=== PATIENT | female | born 1975 | race Caucasian/White ===

== ENCOUNTER → 2017-06-18 07:51 | Outpatient (CLI) | payer MEDICAID, SELFPAY ==
--- NOTE | 2017-06-18 07:54 | US_ITS ---
US abdomen limited: HISTORY: Right upper quadrant pain with nausea and vomiting and bloating ITS.REASON: N V after meals ORDERING PHYSICIAN: Vamshi Swann MD PATIENT AGE: 42 years COMPARISON: FINDINGS: PANCREAS: Unremarkable. No obvious mass or abnormal fluid collection. No ductal dilatation LIVER: No focal liver lesions demonstrated. Homogeneous echogenicity. No intrahepatic biliary ductal dilatation evident RIGHT KIDNEY: Unremarkable. Normal size and echogenicity. No hydronephrosis GALLBLADDER: No gallstones, gallbladder wall thickening, pericholecystic fluid, or biliary dilatation. IMPRESSION: Negative gallbladder/right upper quadrant ultrasound
== END ==
PROVIDERS: Family Provider Emergency Medicine; PCP Emergency Medicine; Visit Provider Emergency Medicine
DX: R10.11 Right upper quadrant pain (principal); R11.2 Nausea with vomiting, unspecified
CPT/HCPCS: 76705

== ENCOUNTER → 2017-07-22 09:58 | Outpatient (CLI) | payer MEDICAID, SELFPAY ==
[2017-07-22 07:57] LABS: Microscopic, Urine URINE MICROSCOPIC (MICROSCOPIC)
[2017-07-22 08:19] LABS: Basophils # 0.1 K/mm3 (0-0.2); Basophils % 0.7 % (0.1-2.0); Eosinophils # 0.2 K/mm3 (0.0-0.4); Eosinophils % 2.7 % (0.1-12.0); Hematocrit 41.4 % (37.0-47.0); Lymphocytes # 3.6 K/mm3 (0.7-4.5); Lymphocytes % 53.8 K/mm3 (10-50); Mean Corpuscular HGB Conc 31.4 g/dL (31.8-35.4); Mean Corpuscular Hemoglobin 29.8 pg (27.0-31.2); Mean Platelet Volume 9.5 fl (7.4-10.4); Monocytes # 0.3 K/mm3 (0.1-1.0); Monocytes % 4.3 % (1.7-9.3); Neutrophils # 2.6 K/mm3 (1.8-7.8); Neutrophils % 38.5 % (37.0-80.0); Platelet Count 209 K/mm3 (142-424); Red Blood Count 4.35 M/mm3 (4.20-5.40); Red Cell Distribution Width 13.3 % (11.5-17.5); White Blood Count 6.7 K/mm3 (4.8-10.8)
[2017-07-22 08:20] LABS: Appearance,Urine SL CLOUDY (Clear); Bilirubin,Urine Negative (Negative); Blood, Urine Negative (Negative); Color,Urine YELLOW (Yellow); Glucose,Urine (UA) Negative (Negative); Ketones,Urine Negative (Negative); Leukocyte Esterase,Urine Negative (Negative); Nitrate,Urine POSITIVE (Negative); Protein,Urine Negative (Negative); Urobilinogen,Urine 0.2 EU/dl (0.2)
[2017-07-22 08:34] LABS: Bacteria,Urine 2+ /lpf
[2017-07-22 08:35] LABS: Fine Granular Casts,Urine Occasional #/lpf (0)
[2017-07-22 08:36] LABS: MANUAL DIFFERENTIAL MANUAL DIFFERENTIAL (MANUAL DIFF)
[2017-07-22 09:15] LABS: Alanine Aminotransferase 17 U/L (12-78); Albumin/Globulin Ratio 1.3 (1.1-1.8); Alkaline Phosphatase 103 U/L (46-116); Anion Gap 13.1 mEq/L (5-15); Aspartate Amino Transferase 18 U/L (15-37); Bilirubin,Total 0.3 mg/dL (0.2-1.0); Blood Urea Nitrogen 7 mg/dL (7-18); Calcium 9.6 mg/dL (8.5-10.1); Carbon Dioxide 31 mmol/L (21.0-32.0); Chloride 104 mmol/L (98-107); Creatinine,Serum 0.73 mg/dL (0.55-1.02); Estimated Glomerular Filt Rate 87 ml/min (>60); GFR (African American) 105 ML/MIN (>60); Globulin 3.2 gm/dl (1.3-3.2); Glucose 81 mg/dL (74-106); Potassium 4.1 mmoL/L (3.5-5.1); Sodium 144 mmol/L (136-145); Total Protein,Serum 7.2 gm/dL (6.4-8.2)
[2017-07-22 09:49] LABS: Lymphocytes % 53 % (10-50); Monocytes % 5 % (2-9); Neutrophils % 40 % (42-76); Total Cells Counted 100
[2017-07-22 09:50] LABS: Platelet Estimate Normal
== END ==
PROVIDERS: Visit Provider Surgery
DX: Z01.818 Encounter for other preprocedural examination (principal); R10.12 Left upper quadrant pain; R11.2 Nausea with vomiting, unspecified
CPT/HCPCS: 36415; 80053; 81001; 85007; 85025; 87086; 87088; 87186

== ENCOUNTER 2020-04-29 22:38 | Emergency (ER) | payer MEDICAID, SELFPAY ==
[2020-04-29 22:39] VITALS: BP 108/73; PULSE 101; RESP 4; TEMP -17.7; TEMP 0; O2SAT 85
[2020-04-29 23:01] VITALS: BP 108/73; PULSE 101; RESP 12; TEMP -17.7; TEMP 0; O2SAT 100
--- NOTE | 2020-04-29 23:01 | HMH.EDOD ---
ED Disposition Clinical Impression: Poisoning by opiate or related narcotic Disposition: Left Against Medical Advice Condition on Discharge: Serious Instructions: DI for Drug Overdose in Adults Additional Instructions: call pcp for follow up Referrals: PCP,Ying [Primary Care Provider] - - Critical Care Critical Care Time: No Attestation: On 04/29/20, the high probability of a clinically significant, sudden or life threatening deterioration of the following system(s) required my full and direct attention, intervention and personal management. The time I documented below is in addition to time spent performing reported procedures but includes the following listed in this critical care notation. Medical Decision Making - Medical Records Medical records reviewed: Yes: I reviewed the patient's medical records. - Vel Inquiry Pt receiving controlled substance: No Vital Signs: 04/29/20 22:39 Temperature 0 F L Temperature Source Oral Pulse Rate [Right] 101 H Respiratory Rate 4 L Blood Pressure [Right Arm] 108/73 L Blood Pressure Mean [Right Arm] 84 02 Sat by Pulse Oximetry 85 L Oxygen Delivery Method Room Air Orders (Tests/Meds): ED MEDICATIONS Discontinued Medications Generic Name Dose Route Start Last Admin Trade Name Freq PRN Reason Stop Dose Admin Naloxone HCl 2 mg 04/29/20 22:59 Naloxone 2mg/2ml Syringe IV 04/29/20 23:00 ONCE ONE Naloxone HCl 1 mg 04/29/20 22:59 Naloxone 2mg/2ml Syringe IV 04/29/20 23:00 ONCE ONE Medical Decision Narrative: opiate poisioning with acute resp arrest reversed with narcan x 2 Overdose HPI - General Chief Complaint: Overdose Stated Complaint: unresponsive Time Seen by Provider: 04/29/20 22:40 Mode of Arrival: Wheelchair Source of Information: Patient, Significant Other, Medical Record Limitations: Altered Mental Status Description of Symptoms (Recalled from ER Triage Doc. by RN): was called to help get a pt out of car. upon arrival found pt unresponsive cyantioc , shallow breathing. adminster narcan pt left ama - History of Present Illness HPI Narrative: pt with dec loc and removed from car with dec rr and possible opiate misuse complaint: accidental overdose Onset (ago): hour(s) Timing confirmed by: family member Context: Accidental Overdose: wanted to get high Treatments Prior to Arrival: none - Related Data Previous Rx's Medication Instructions Recorded oxycodone-acetaminophen 7.5 mg-325 1 tab PO QID #40 tab 10/29/17 mg tablet Allergies Allergy/AdvReac Type Severity Reaction Status Date / Time From Penicillin G Sodium Allergy Unknown Uncoded 10/29/17 11:35 Penicillin Allergy Unknown Uncoded 10/29/17 11:35 [facility] History - Hepatitis A Screen Drug use history?: Yes High risk sexual behaviors?: No History of sexually transmitted infection?: No Currently employed?: No Childcare worker?: No Do you have indoor plumbing?: Yes Do you have electricity?: Yes Attestation statement:: This patient has been screened for Hepatitis A risk factors. I have reviewed the patient's past medical history: Yes Medical History: Reports:: Gastroesophageal Reflux Disease(GERD) Denies:: Chronic Obstructive Pulmonary Disease (COPD), Diabetes Mellitus Type 1, Diabetes Mellitus Type 2, Internal Pacemaker, Lung Disease, Seizures Other Medical History: Reports: Other. Denies: Blood Transfusion Reaction Comment: spinal fracture C4,5,6,7 Laterality Cases: Bilateral: Carpal Tunnel Release Other Surgeries: Yes: Hysterectomy-Partial, Other. No: Pacemaker Amputation: No Fractures: Yes - Social History Smoking Status: Unknown if ever smoked Tobacco Type: cigarettes Alcohol Intake: never Substance Use Type: denies use Last Used Substance: unknown Occupational Status: unemployed Family Hx:: Cancer ROS Obtained: Yes unobtainable due to mental status Physical Exam - General General appearance: lethargic - He
== END 2020-04-29 23:30 | disposition left against medical advice (07) ==
PROVIDERS: Emergency Provider Emergency Medicine
DX: R55 Syncope and collapse (principal); T40.2X1A Poisoning by other opioids, accidental (unintentional), initial encounter
CPT/HCPCS: 96375; 99282; J2310

== ENCOUNTER 2020-10-27 13:15 | Emergency (ER) | payer MEDICAID, SELFPAY ==
[2020-10-27 13:26] VITALS: BP 136/88; PULSE 75; RESP 20; TEMP 37.1; O2SAT 98; BMI 22.3
--- NOTE | 2020-10-27 13:40 | HMH.EDUTC ---
[facility] Clinical Impression: Abscess, dental Disposition: Home, Self-Care Condition on Discharge: Good Instructions: Tooth Abscess Additional Instructions: Maximo Garcia DMD [phone] Referrals: Vamshi Swann MD [Primary Care Provider] - Time of Disposition: 13:56 Medical Decision Making - Vel Inquiry Pt receiving controlled substance: No Vital Signs: 10/27/20 13:26 10/27/20 14:19 Temperature 98.8 F 98 F Temperature Source Oral Pulse Rate 75 Pulse Rate [Left] 75 Respiratory Rate 20 16 Blood Pressure 136/88 Blood Pressure [Right Arm] 136/88 Blood Pressure Mean [Right Arm] 104 02 Sat by Pulse Oximetry 98 Orders (Tests/Meds): ED MEDICATIONS Discontinued Medications Generic Name Dose Route Start Last Admin Trade Name Freq PRN Reason Stop Dose Admin Benzocaine/Butamben/Tetracaine HCl 30 gm 10/27/20 13:54 10/27/20 14:06 Tetracaine/Benzocaine/Butamben 56 Gm [place] TP 11/26/20 13:53 30 gm NEEDED PRN Administration Moderate Pain Lidocaine HCl 5 ml 10/27/20 14:05 10/27/20 14:06 Lidocaine 1% 5ml Pf Vial IJ 10/27/20 14:06 Not Given ONCE ONE Lidocaine HCl 15 ml 10/27/20 14:07 10/27/20 14:08 Lidocaine 2% Viscous Magdalena 15ml Udc PO 10/27/20 14:08 15 ml ONCE ONE Administration [facility] [place]PI - General Stated complaint: right side abcess tooth Time Seen by Provider: 10/27/20 13:40 Mode of Arrival: Ambulatory Source of Information: Patient Limitations: No Limitations Description of Symptoms (Recalled from Triage Doc. by RN): pt c/o of an abcessed tooth. outter R jaw is swollen. pt had a [facility] appointment and the dentist told her to come in here. HEENT Symptoms (Recalled from RN notes): Yes (R jaw pain) Resp Symptoms (Recalled from RN notes): No Skin Symptoms (Recalled from RN notes): No MS Symptoms (Recalled from RN notes): No Functional Status (Recalled from RN notes): na - History of Present Illness Provider Complaint: Pain and swelling of right lower jaw. Started early this am. Has a broken tooth there, but it has been broken for 2 years. No fever. Onset (ago): year(s) (2) Location: mouth Radiation: neck Severity: severe Quality: stabbing, aching Consistency: constant Relieving factors: none Exacerbating factors: none Associated symptoms: denies other symptoms Treatments prior to arrival: none - Related Data Previous Rx's Medication Instructions Recorded oxycodone-acetaminophen 7.5 mg-325 1 tab PO QID #40 tab 10/29/17 mg tablet clindamycin HCl 300 mg capsule 300 mg PO BID 10 Days #20 cap 10/27/20 ibuprofen 800 mg tablet 800 mg PO Q8HP PRN 10 Days #30 tab 10/27/20 Allergies Allergy/AdvReac Type Severity Reaction Status Date / Time From Penicillin G Sodium Allergy Unknown Uncoded 10/29/17 11:35 Penicillin Allergy Unknown Uncoded 10/29/17 11:35 - Worker's Comp Is this a Worker's Comp case?: No [facility] History - Hepatitis A Screen Drug use history?: No High risk sexual behaviors?: No History of sexually transmitted infection?: No Currently employed?: No Childcare worker?: No Do you have indoor plumbing?: Yes Do you have electricity?: Yes Attestation statement:: This patient has been screened for Hepatitis A risk factors. I have reviewed the patient's past medical history: Yes Medical History: Reports:: Gastroesophageal Reflux Disease(GERD) Denies:: Chronic Obstructive Pulmonary Disease (COPD), Diabetes Mellitus Type 1, Diabetes Mellitus Type 2, Internal Pacemaker, Lung Disease, Seizures Other Medical History: Reports: Other. Denies: Blood Transfusion Reaction Comment: spinal fracture C4,5,6,7 Laterality Cases: Bilateral: Carpal Tunnel Release Other Surgeries: Yes: Hysterectomy-Partial, Other. No: Pacemaker Amputation: No Fractures: Yes - Social History Smoking Status: Unknown if ever smoked Tobacco Type: cigarettes Alcohol Intake: never Substance Use Type: denies use Occupational Status: unemployed
[2020-10-27 14:19] VITALS: BP 136/88; PULSE 75; RESP 16; TEMP 36.6
== END 2020-10-27 14:20 | disposition home or self-care (01) ==
PROVIDERS: Emergency Provider Physician Assistant; PCP Emergency Medicine
DX: K04.7 Periapical abscess without sinus (principal); K21.9 Gastro-esophageal reflux disease without esophagitis
CPT/HCPCS: 99202; G0463

== ENCOUNTER 2022-01-03 17:05 | Emergency (ER) | payer MEDICARE, MEDICAID, SELFPAY ==
--- NOTE | 2022-01-03 17:56 | EXP.UTC ---
Discharge Plan Disposition Patient Disposition: Home, Self-Care Condition: Good Prescriptions Prescriptions: New meclizine 25 mg tablet 25 mg PO TID PRN (Reason: dizziness) Qty: 30 0RF methylprednisolone 4 mg Tablets,Dose Pack 4 mg PO DIRECTED Qty: 21 0RF No Action oxycodone-acetaminophen [Percocet] 7.5-325 mg tablet 1 tab PO QID Qty: 40 0RF clindamycin HCl 300 mg capsule 300 mg PO BID 10 Days Qty: 20 0RF ibuprofen 800 mg tablet 800 mg PO Q8HP PRN (Reason: Moderate Pain) 10 Days Qty: 30 0RF Referrals Follow up/Referrals: Rosana Wen PA [Primary Care Provider] - See instructions Activity Restrictions/Add. Instructions Additional Instructions/Restrictions: Drink plenty of fluids. Take tylenol or ibuprofen for pain or fever. Take the medications as directed. Follow up with your regular doctor. GO TO THE ER FOR ANY WORSENING SYMPTOMS The meclizine (antivert) will make you drowsy, so don't drive or operate heavy machinery after taking it. Clinical Impressions Clinical Impression: Acute serous otitis media, Vertigo Instructions Patient Instructions: Middle Ear Infection, DI for Vertigo Discharge ED Provider: Zachariah Jones [facility] General Stated complaint: dizzy simonibparish is sugar Time Seen by Provider: 01/03/22 17:56 History of Present Illness Provider Complaint: She states that she has had dizziness on and off for the past 3 days. She states that certain ways she turns her head or moves trigger her symptoms. Related Data Previous Rx's Medication Instructions Recorded oxycodone-acetaminophen 7.5 mg-325 1 tab PO QID Pain #40 tabs 10/29/18 mg tablet (Percocet) clindamycin HCl 300 mg capsule 300 mg PO BID 10 days #20 caps 10/27/20 ibuprofen 800 mg tablet 800 mg PO Q8HP PRN Moderate Pain 10/27/20 10 days #30 tabs meclizine 25 mg tablet 25 mg PO TID PRN dizziness #30 tabs 01/03/22 methylprednisolone 4 mg tablets in 4 mg PO DIRECTED #21 tabs 01/03/22 a dose pack Allergies Allergy/AdvReac Type Severity Reaction Status Date / Time Penicillins Allergy Verified 01/03/22 18:09 PFSH [facility] Social History Smoking Status: Unknown if ever smoked alcohol intake: never substance use type: denies use current occupational status: unemployed Travel in the last 8 weeks: None caffeine: No ROS Obtained: Yes All systems reviewed & no additional complaints except as documented Constitutional Constitutional: Denies chills and Denies fever(s) Eyes Eyes: Denies eye discharge ENT Ears, Nose, Mouth, and Throat: Denies dizziness, Reports otalgia, Denies sore throat and Reports vertigo Cardiovascular Cardiovascular: Denies chest pain Respiratory Respiratory: Denies shortness of breath, Denies chest congestion, Denies cough, Denies stridor and Denies wheezing Gastrointestinal Gastrointestingal: Denies nausea or vomiting Musculoskeletal Musculoskeletal: Reports system reviewed and no additional complaints, except as documented and Denies arthralgias Integumentary/Breasts Skin/Breast: Denies rash Neurologic Neurologic: Denies dizziness, Denies paresthesias and Reports vertigo Allergic/Immunologic Allergic/Immunologic: Denies wheezing Physical Exam General General appearance: alert and in no apparent distress Head Head exam: atraumatic, normocephalic and normal inspection Eye Eye exam: Present normal appearance; Absent PERRL or EOMI ENT ENT exam: Present mucous membranes moist and normal external ear exam Expanded ENT Exam TM/Canal exam: Bilateral TM: erythema, bulging and effusion Nose exam: Absent sinus tenderness Nasal speculum exam: Bilateral: normal Mouth exam: Present normal external inspection and other; Absent drooling Teeth exam: Present normal inspection Throat exam: Present tonsillar erythema and tonsillomegaly Neck Neck exam: Present normal inspection, full ROM and trachea midlin
[2022-01-03 18:00] LABS: POC Glucose,Bedside 129 (70-110)
[2022-01-03 18:06] VITALS: BP 168/107; PULSE 70; RESP 16; TEMP 37.1; O2SAT 100; BMI 21.9
--- NOTE | 2022-01-03 18:14 | ECG_ITS ---
APPROVED REPORT Exam: Resting ECG HR:64 bpm ECG Measurements Heart Rate 64 AXES CO 135 P 70 QRSd 101 QRS 34 QT 389 T 31 QTc 398 Conclusion SINUS RHYTHM NORMAL ECG UNCONFIRMED REPORT Electronically signed by : Dave Sheriff MD 01/05/2022 19:46:29
[2022-01-03 18:39] LABS: Basophils # 0.1 K/mm3 (0-0.2); Basophils % 1.2 % (0.1-2.0); Eosinophils # 0.2 K/mm3 (0.0-0.4); Eosinophils % 2.4 % (0.1-12.0); Hematocrit 42.4 % (37.0-47.0); Hemoglobin 13.7 g/dL (12.2-16.2); Lymphocytes # 3.7 K/mm3 (0.7-4.5); Lymphocytes % 52.7 % (10-50); Mean Corpuscular HGB Conc 32.4 g/dL (31.8-35.4); Mean Corpuscular Volume 92.7 fl (81-99); Mean Platelet Volume 8.8 fl (7.4-10.4); Monocytes # 0.3 K/mm3 (0.1-1.0); Monocytes % 3.8 % (1.7-9.3); Neutrophils # 2.8 K/mm3 (1.8-7.8); Neutrophils % 39.9 % (37.0-80.0); Platelet Count 232 K/mm3 (142-424); Red Blood Count 4.58 M/mm3 (4.20-5.40); Red Cell Distribution Width 13.5 % (11.5-17.5); White Blood Count 7.1 K/mm3 (4.8-10.8)
[2022-01-03 18:41] LABS: MANUAL DIFFERENTIAL MANUAL DIFFERENTIAL (MANUAL DIFF)
[2022-01-03 18:49] LABS: Chloride 97 mmol/L (98-107); Sodium 141 mmol/L (136-145)
[2022-01-03 18:52] LABS: Blood Urea Nitrogen 8 mg/dl (7-17); Calcium 9.6 mg/dl (8.4-10.2); Carbon Dioxide 34 mmol/L (22.0-30.0); Creatinine Clearance Estimated 85 mL/min (50-200); Estimated Glomerular Filt Rate 90 ml/min (>60); GFR (African American) 109 ML/MIN (>60); Glucose 81 mg/dl (74-100)
[2022-01-03 19:00] LABS: Lymphocytes % 57 % (10-50); Monocytes % 3 % (2-9); Neutrophils % 39 % (42-76); Platelet Estimate Normal; RBC Morphology Normal; Total Cells Counted 100
[2022-01-03 19:04] VITALS: BP 120/80; BP 125/80; BP 137/84; PULSE 64; PULSE 67; PULSE 71
[2022-01-03 19:36] VITALS: BP 124/82; PULSE 64; RESP 16; TEMP 37.1
[2022-01-03 19:52] LABS: Apearance,Urine Clear (Clear); Blood, Urine Negative (Negative); Color,Urine Yellow (Yellow); Glucose,Urine (UA) Negative (Negative); Ketones,Urine Negative (Negative); Protein,Urine Negative (Negative); Specific Gravity, Urine 1.015 (1.005-1.030)
[2022-01-03 19:53] LABS: Bilirubin,Urine Negative (Negative); UTC Leukocyte Esterase,Urine Negative (Negative); UTC Nitrate,Urine Negative (Negative); Urobilinogen,Urine 0.2 EU/dl (0.2)
== END 2022-01-03 19:37 | disposition home or self-care (01) ==
PROVIDERS: Emergency Provider Nurse Practitioner Family; PCP Physician Assistant
DX: R42 Dizziness and giddiness (principal); H65.00 Acute serous otitis media, unspecified ear
CPT/HCPCS: 80048; 81003; 82962; 85007; 85025; 93005; 99212; G0463

== ENCOUNTER → 2022-02-16 07:56 | Outpatient (CLI) | payer MEDICARE, BC, SELFPAY ==
--- NOTE | 2022-02-16 08:04 | MR_ITS ---
FINAL REPORT TECHNIQUE: Multiplanar MR, without and with gadolinium enhancement CLINICAL HISTORY: vertigo, dizziness 11ml prohance injected FINDINGS: Diffusion sequences show no signal abnormality to indicate acute infarct. No mass, hemorrhage or edema is seen. Ventricles are normal. Major vascular flow voids are intact. Following contrast administration, no mass or abnormal enhancement is seen. IMPRESSION: Unremarkable MR evaluation the brain with contrast Reviewed, Interpreted and Dictated by Roz Lopes MD Transcribed by Nikole Hayden Authenticated and [facility]
== END ==
PROVIDERS: PCP Physician Assistant; Visit Provider Emergency Medicine
DX: R42 Dizziness and giddiness (principal)
CPT/HCPCS: 70553; A9576

== ENCOUNTER → 2022-03-04 15:00 | Outpatient (CLI) | payer MEDICARE, BC, SELFPAY ==
[2022-03-04 19:29] LABS: Alanine Aminotransferase 18 U/L (12-78); Albumin Level 4.6 g/dl (3.5-5.0); Albumin/Globulin Ratio 1.8 (1.1-1.8); Alkaline Phosphatase 73 U/L (38-126); Aspartate Amino Transferase 31 U/L (14-36); Bilirubin,Total 0.5 mg/dl (0.2-1.3); Blood Urea Nitrogen 15 mg/dl (7-17); Calcium 8.8 mg/dl (8.4-10.2); Carbon Dioxide 29 mmol/L (22.0-30.0); Chloride 100 mmol/L (98-107); Chol/HDL Ratio 4.1 (1-3.5); Cholesterol 227 mg/dl (140-200); Estimated Glomerular Filt Rate 89 ml/min (>60); GFR (African American) 108 ML/MIN (>60); Globulin 2.5 g/dL (1.3-3.2); Glucose 82 mg/dl (74-100); HDL Cholesterol 55 mg/dl (40-60); Sodium 137 mmol/L (136-145); Total Protein,Serum 7.1 g/dl (6.3-8.2); Triglycerides 167 mg/dl (30-150); VLDL Cholesterol 33 mg/dL (0-40)
[2022-03-04 19:40] LABS: Direct LDL Cholesterol 122.68 mg/dL (100-129)
[2022-03-07 22:45] LABS: Hep A Ab, IgM NEGATIVE; Hepatitis B Core Antibody IgM NEGATIVE; Hepatitis B Surface Antigen NEGATIVE; Hepatitis C Antibody <0.1
== END ==
PROVIDERS: PCP Emergency Medicine; Visit Provider Emergency Medicine
DX: R10.9 Unspecified abdominal pain (principal); R53.83 Other fatigue; E78.5 Hyperlipidemia, unspecified
CPT/HCPCS: 80053; 80061; 80074; 87522

== ENCOUNTER → 2022-03-12 07:51 | Outpatient (CLI) | payer MEDICARE, BC, SELFPAY ==
--- NOTE | 2022-03-12 07:52 | CT_ITS ---
FINAL REPORT TECHNIQUE: After the administration of oral and intravenous contrast, axial images were obtained through the abdomen and pelvis by computed tomography. The study was performed with techniques to keep radiation dose as low as reasonably achievable, (ALARA). Individual dose reduction techniques using automated exposure control or adjustment of mA and/or kV according to the patient's size were employed. CLINICAL HISTORY: abdominal pain and bloating COMPARISON: 09/25/2018 FINDINGS: Abdomen: No acute density is seen within the lung bases. The gallbladder is unremarkable. Solid abdominal organs are unremarkable. No bowel obstruction is present. There is no free air. No fluid collection is seen. There is no adenopathy. Pelvis: The appendix is not identified. Status post hysterectomy. Urinary bladder is unremarkable. There is moderate diffuse fecal impaction, mildly worse compared to the prior study. The bowel is unremarkable. IMPRESSION: Moderate fecal impaction without evidence of ascites or mass. Reviewed, Interpreted and Dictated by Roz Lopes MD Transcribed by Johanna Cheng Authenticated and [facility]
== END ==
PROVIDERS: PCP Emergency Medicine; Visit Provider Emergency Medicine
DX: R10.9 Unspecified abdominal pain (principal); R53.83 Other fatigue
CPT/HCPCS: 74177; Q9967

== ENCOUNTER → 2022-04-29 22:34 | Outpatient (CLI) | payer MEDICARE, BC, SELFPAY ==
[2022-04-29 18:27] LABS: Amphetamine/Metha Screen,Urine Negative ng/ml (<1000)
[2022-04-29 18:28] LABS: Barbiturates Screen,Urine Negative ng/ml (<200)
[2022-04-29 18:29] LABS: Benzodiazepines Screen,Urine Negative ng/ml (<200)
[2022-04-29 18:30] LABS: Cocaine Screen,Urine Negative ng/ml (<300); Methadone Screen,Urine Negative ng/ml (<300)
[2022-04-29 18:31] LABS: Opiate Screen,Urine Positive ng/ml (<300)
[2022-04-29 18:32] LABS: Phencyclidine Screen,Urine Negative ng/ml (<25)
[2022-04-29 18:56] LABS: Cannabinoid Screen,Urine Negative ng/ml (<50)
== END ==
PROVIDERS: PCP Emergency Medicine; Visit Provider Emergency Medicine
DX: G89.29 Other chronic pain (principal)
CPT/HCPCS: 80305

== ENCOUNTER → 2022-08-24 14:51 | Outpatient (CLI) | payer MEDICARE, SELFPAY ==
[2022-08-25 01:23] LABS: Barbiturates Screen,Urine Negative ng/ml (<200)
[2022-08-25 01:24] LABS: Amphetamine/Metha Screen,Urine Negative ng/ml (<1000); Benzodiazepines Screen,Urine Negative ng/ml (<200)
[2022-08-25 02:14] LABS: Cannabinoid Screen,Urine Negative ng/ml (<50); Methadone Screen,Urine Negative ng/ml (<300)
[2022-08-25 02:15] LABS: Cocaine Screen,Urine Negative ng/ml (<300)
[2022-08-25 02:16] LABS: Opiate Screen,Urine Negative ng/ml (<300); Phencyclidine Screen,Urine Negative ng/ml (<25)
== END ==
PROVIDERS: PCP Emergency Medicine; Visit Provider Emergency Medicine
DX: G89.29 Other chronic pain (principal); Z79.899 Other long term (current) drug therapy
CPT/HCPCS: 80305

== ENCOUNTER → 2022-10-23 10:00 | Outpatient (CLI) | payer MEDICARE, SELFPAY ==
[2022-10-23 13:42] LABS: Phencyclidine Screen,Urine Negative ng/ml (<25)
[2022-10-23 13:58] LABS: Amphetamine/Metha Screen,Urine Negative ng/ml (<1000); Cannabinoid Screen,Urine Negative ng/ml (<50)
[2022-10-23 13:59] LABS: Barbiturates Screen,Urine Negative ng/ml (<200)
[2022-10-23 14:00] LABS: Benzodiazepines Screen,Urine Negative ng/ml (<200)
[2022-10-23 14:01] LABS: Opiate Screen,Urine Positive ng/ml (<300)
[2022-10-23 14:02] LABS: Cocaine Screen,Urine Negative ng/ml (<300); Methadone Screen,Urine Negative ng/ml (<300)
== END ==
PROVIDERS: PCP Emergency Medicine; Visit Provider Emergency Medicine
DX: G89.29 Other chronic pain (principal)
CPT/HCPCS: 80305

== ENCOUNTER → 2022-12-25 15:24 | Outpatient (CLI) | payer MEDICARE, SELFPAY ==
[2022-12-25 15:56] LABS: Amphetamine/Metha Screen,Urine Negative ng/ml (<1000)
[2022-12-25 15:57] LABS: Barbiturates Screen,Urine Negative ng/ml (<200); Benzodiazepines Screen,Urine Positive ng/ml (<200)
[2022-12-25 15:58] LABS: Cannabinoid Screen,Urine Negative ng/ml (<50)
[2022-12-25 15:59] LABS: Cocaine Screen,Urine Negative ng/ml (<300); Methadone Screen,Urine Negative ng/ml (<300)
[2022-12-25 16:00] LABS: Opiate Screen,Urine Positive ng/ml (<300); Phencyclidine Screen,Urine Negative ng/ml (<25)
== END ==
PROVIDERS: PCP Emergency Medicine; Visit Provider Emergency Medicine
DX: G89.29 Other chronic pain (principal)
CPT/HCPCS: 80305

== ENCOUNTER 2023-02-22 15:34 | Outpatient (CLI) | payer MEDICARE, SELFPAY ==
[2023-02-22 13:48] LABS: Basophils % 0.6 % (0.1-2.0); Eosinophils # 0.1 K/mm3 (0.0-0.4); Eosinophils % 0.9 % (0.1-12.0); Hematocrit 44.8 % (37.0-47.0); Hemoglobin 14.4 g/dL (12.2-16.2); Mean Corpuscular HGB Conc 32.3 g/dL (31.8-35.4); Mean Corpuscular Hemoglobin 30.9 pg (27.0-31.2); Mean Corpuscular Volume 95.8 fl (81-99); Mean Platelet Volume 9.8 fl (7.4-10.4); Monocytes # 0.3 K/mm3 (0.1-1.0); Monocytes % 4.4 % (1.7-9.3); Neutrophils # 4.1 K/mm3 (1.8-7.8); Neutrophils % 63.1 % (37.0-80.0); Platelet Count 220 K/mm3 (142-424); Red Blood Count 4.67 M/mm3 (4.20-5.40); Red Cell Distribution Width 13.8 % (11.5-17.5); White Blood Count 6.6 K/mm3 (4.8-10.8)
[2023-02-22 13:52] LABS: Chloride 101 mmol/L (98-107); Potassium 5.1 mmoL/L (3.5-5.1); Sodium 141 mmol/L (136-145)
[2023-02-22 13:55] LABS: Alanine Aminotransferase 25 U/L (12-78); Albumin Level 4.7 g/dl (3.5-5.0); Albumin/Globulin Ratio 1.7 (1.1-1.8); Alkaline Phosphatase 86 U/L (38-126); Anion Gap 18.1 mEq/L (5-15); Aspartate Amino Transferase 35 U/L (14-36); Bilirubin,Total 0.4 mg/dl (0.2-1.3); Blood Urea Nitrogen 14 mg/dl (7-17); Calcium 9.8 mg/dl (8.4-10.2); Carbon Dioxide 27 mmol/L (22.0-30.0); Chol/HDL Ratio 3.2 (1-3.5); Cholesterol 204 mg/dl (140-200); Estimated Glomerular Filt Rate 89 ml/min (>60); GFR (African American) 108 ML/MIN (>60); Globulin 2.8 g/dL (1.3-3.2); Glucose 96 mg/dl (74-100); HDL Cholesterol 64 mg/dl (40-60); Total Protein,Serum 7.5 g/dl (6.3-8.2); Triglycerides 96 mg/dl (30-150); VLDL Cholesterol 19 mg/dL (0-40)
[2023-02-22 14:06] LABS: Direct LDL Cholesterol 101.75 mg/dL (100-129)
[2023-02-22 14:18] LABS: 25-OH Vitamin D, Total 32.6 ng/mL (30-100)
[2023-02-22 14:25] LABS: Thyroid Stimulating Hormone 0.03 uIU/mL (0.465-4.68)
[2023-02-22 16:35] LABS: Amphetamine/Metha Screen,Urine Negative ng/ml (<1000); Barbiturates Screen,Urine Negative ng/ml (<200); Benzodiazepines Screen,Urine Positive ng/ml (<200); Cannabinoid Screen,Urine Negative ng/ml (<50); Cocaine Screen,Urine Negative ng/ml (<300); Methadone Screen,Urine Negative ng/ml (<300); Opiate Screen,Urine Negative ng/ml (<300); Phencyclidine Screen,Urine Negative ng/ml (<25)
[2023-02-22 17:43] LABS: Hemoglobin A1C 4.9 % (4.0-6.0)
[2023-02-23 16:03] LABS: Intact Parathyroid Hormone 33.5 pg/mL (7.5-53.5)
[2023-02-23 16:07] LABS: Free Thyroxine Index 2.7 ug/dL (5.93-13.13); T4 (Thyroxine) 8.8 ug/dl (5.53-11.0); Triiodothryronine (T3) Uptake 31 % (23.5-40.5)
[2023-02-23 16:21] LABS: Thyroid Stimulating Hormone 0.03 uIU/mL (0.465-4.68)
[2023-02-28 10:09] LABS: Alprazolam Negative (Cutoff=100); Benzodiazepines Positive ng/mL (Cutoff=100); Clonazepam Negative (Cutoff=100); Flurazepam Negative (Cutoff=100); Lorazepam Positive (.); Midazolam Negative (Cutoff=100); Opiates Negative (Cutoff=100); Oxycodone (GC/MS) 621 ng/mL (Cutoff=100); Oxymorphone (GC/MS) 1401 ng/mL (Cutoff=100); Temazepam Positive (.); Triazolam Negative (Cutoff=100)
== END 2023-02-22 23:59 ==
LOC: LAB.DROPOF 15:34
PROVIDERS: PCP Family Medicine; Visit Provider Family Medicine
DX: Z79.899 Other long term (current) drug therapy (principal); E55.9 Vitamin D deficiency, unspecified; R53.83 Other fatigue; E78.49 Other hyperlipidemia; R73.9 Hyperglycemia, unspecified; R79.89 Other specified abnormal findings of blood chemistry
CPT/HCPCS: 80053; 80061; 80307; 80346; 80361; 80365; 82306; 83036; 83970; 84436; 84443; 84479; 85025; G0480

== ENCOUNTER 2023-02-23 10:38 | Outpatient (CLI) | payer MEDICARE, SELFPAY | END 2023-02-23 23:59 | LOC: LAB.DROPOF 02-26 10:39 | PROVIDERS: PCP Family Medicine; Visit Provider Family Medicine | DX: R79.89 Other specified abnormal findings of blood chemistry (principal); R53.83 Other fatigue | CPT/HCPCS: 84436; 84443; 84479 ==

== ENCOUNTER 2023-02-25 11:39 | Outpatient (CLI) | payer MEDICARE, SELFPAY ==
--- NOTE | 2023-02-25 | CA_ITS ---
APPROVED REPORT Exam: Pharmacologic Technologist: Yadi Guthrie, Ht: 5 ft 2 in Wt: 124 lbs BSA: 1.56 m2 HR: 74 bpm BP: 140/81 mmHg Rhythm: NSR Medical History Medical History: Hyperlipidemia Medications: Atorvastatin,,,,, Lyrica,,,,, Escitalopram,,,,, PERCOCET,,,,, ClonAZEPAM,,,,, MiraLAX,,,,, Meclizine,,,,, LiNZESS,,,,, Allergies: PCN Cardiac Risk Factors: Hyperlipidemia Stress Test Details Test: LEXISCAN HR Resting HR: 74 bpm Max Heart Rate (APMHR): 171 bpm Max HR Achieved: 86 bpm Target HR (85% APMHR): 145 bpm % of APMHR: 50 Recovery HR: 72 bpm BP Resting BP: 140/81 mmHg Max BP: 140/81 mmHg Recovery BP: 135.0/90.0 mmHg ECG Resting ECG: NSR Stress ECG: No significant ST changes Arrhythmia: None Clinical Exercise duration: 04:00 min Highest Stage Achieved: Stress ECG Conclusion PT HAD MILD SOA, NAUSEA, HEAD DISCOMFORT. NO CP NO SIGNIFICANT ST CHANGES CONCLUSION: UNREMARKABLE LEXISCAN STRESS MYOVIEW IMAGES REPORTED SEPARATELY Test Summary REST . . . . . . . Resting REST 02:46 . . 74 . 140/ 81 . . Stage 1 01:00 . . 85 . . . . Stage 2 01:00 . . 80 . 128/ 81 . . Stage 3 01:00 . . 74 . 125/ 83 . . Stage 4 01:00 . . 74 . 132/ 80 . Stop exercise at 04:00 RECOVERY 01:00 . . 76 . . . . RECOVERY 02:00 . . 77 . 122/ 91 . . RECOVERY 03:00 . . 75 . 135/ 90 . . RECOVERY 03:29 . . 78 . 135/ 90 . . Electronically signed by : Lisette Monge MD 02/28/2023 06:33:48
--- NOTE | 2023-02-25 11:40 | NM_ITS ---
APPROVED REPORT Exam: Nuclear Stress Test Indication: chest pain..soa Patient Location: Outpatient Stress Tech: Tamra Arce ISI Tech:Thea StaffordringtonSHARIF RT(R)(N) Ht: 5 ft 2 in Wt: 120 lbs Bra Size: 36d HR: 74 bpm BP: 140/81 mmHg BSA: 1.54 m2 TID: 1.16 BMI: 21.9 History: chest rebeka..soa Procedure: Patient received 0.4 mg of intravenous Lexiscan, resting heart rate 74 bpm, resting blood pressure 140/81 mmHg, with Lexiscan maximum heart rate achieved was 86 bpm which is 85 % of the maximum predicted heart rate and blood pressure was 140/80 mmHg. Cardiac Stress and Resting SPECT Images: Cardiac Stress and Resting SPECT images were obtained using technetium 99m Myoview 32.7 mCi stress and 10.65 mCi at rest. Resting and stress imaging in supine and prone positions demonstrate a medium-sized, mild, reversible perfusion defect in the inferior and inferolateral LV lee. Gated imaging demonstrates normal global LV systolic function. LVEF is calculated at 58%. Conclusion: Medium-sized, mild, reversible perfusion defect in the inferior and inferolateral LV lee. Findings are suggestive of reversible ischemia. Gated imaging demonstrates normal global LV systolic function. LVEF is calculated at 58%. Electronically signed by : Lisette Monge MD 02/28/2023 06:36:04
--- NOTE | 2023-02-25 13:30 | CA_ITS ---
APPROVED REPORT EXAM: Comprehensive 2D, Doppler, and color-flow Echocardiogram Dump Operator: TOMMIE Hilton, RVS Ht: 5 ft 2 in Wt: 125lbs BSA: 1.57 BP: 136/84 mmHg Indications: CP, Atypical CP 2D Dimensions IVSd 0.74 cm LVEF (Visual) 78.20 % PWd 0.76 cm LA Volume 41.40 mL LVDd 4.62 cm LA Volume Index 25.90 mL/m2 (M/F) 16-34 LVDs 2.46 cm Left Atrium 2.53 cm M-Mode Dimensions LA Diam 3.64 cm (1.9-4.0) EPSs 0.35 cm TAPSE 2.29 (<1.7) LV Diastology E Decel Time 203 (160-240 msec) E/A Ratio 1.27 MED A' 9.80 cm/s LAT A' 11.20 cm/s Aortic Valve ISSAC Index 1.39 cm2/m2 AoV Peak Suhail. 123.0 (50-130 cm/s) AO Peak GR. 6.10 mmHg AO Mean GR. 3.00 (<5 mmHg) AO VTI 22.8 (18-25 cm) ISSAC (VTI) 2.22 (2.5-4.5 cm2) Mitral Valve MV A Velocity 58.0 (40-130 cm/s) E/A Ratio 1.27 Tricuspid Valve TR P. Velocity 203.00 cm/s RAP Estimate 10.00 mmHg RVSP 26.50 mmHg Left Ventricle The left ventricle is normal size. The left ventricular systolic function is normal. The left ventricular ejection fraction is within the normal range. There is normal left ventricular wall thickness. There is normal LV segmental wall motion. The left ventricular diastolic function is normal. LVEF is 55%. Right Ventricle The right ventricle is normal size. The right ventricular systolic function is normal. Atria The left atrium size is normal. The right atrium size is normal. There is no Doppler evidence of interatrial shunt. Aortic Valve The aortic valve opens well. There is no aortic valvular stenosis. No aortic regurgitation is present. Mitral Valve The mitral valve is normal in structure. No evidence of mitral valve stenosis. There is no mitral valve regurgitation noted. Tricuspid Valve The tricuspid valve leaflets are thin and pliable. Mild tricuspid regurgitation. RVSP is 20-25 mmHg. Pulmonic Valve The pulmonary valve is normal in structure. Mild pulmonic regurgitation. Great Vessels The aortic root is normal in size. The ascending aorta is not well-visualized. IVC is normal in size and collapses >50% with inspiration. Pericardium There is no pericardial effusion. Other Information Study Quality: Adequate Conclusion Normal biventricular systolic function. Mild TR, mild PI. Electronically signed by : Lisette Monge MD 03/01/2023 00:35:51
[2023-02-25] MEDS: REGADENOSON 0.4MG/5ML SYRINGE 0.400000000000000022 MG IV (14:05)
[2023-02-25] MEDS: ISOTOPE MYOVIEW (PER STUDY) 1 DOSE IV (14:06)
[2023-02-25] MEDS: SODIUM CHLORIDE 0.9% 10ML SYR (RAD ONLY) 10 ML IV ×2 (14:06)
== END 2023-02-25 23:59 ==
LOC: RAD 11:40
PROVIDERS: PCP Family Medicine; Visit Provider Family Medicine
DX: R07.9 Chest pain, unspecified (principal); I20.89 Other forms of angina pectoris; R06.09 Other forms of dyspnea; R53.83 Other fatigue
CPT/HCPCS: 78452; 93017; 93018; 93306; A9502; J2785

== ENCOUNTER 2023-03-29 08:48 | Day surgery (SDC) | payer MEDICARE, SELFPAY ==
[2023-03-29] VITALS (14 sets, daily range): BP systolic 94–123; BP diastolic 47–90; PULSE 61–93; RESP 17–19; TEMP 37.3; O2SAT 94–100; BMI 22.1
[2023-03-29 09:39] LABS: Basophils # 0.1 K/mm3 (0-0.2); Basophils % 1.2 % (0.1-2.0); Eosinophils # 0.3 K/mm3 (0.0-0.4); Hemoglobin 14.3 g/dL (12.2-16.2); Lymphocytes # 3.8 K/mm3 (0.7-4.5); Lymphocytes % 53.6 % (10-50); Mean Corpuscular HGB Conc 33.9 g/dL (31.8-35.4); Mean Corpuscular Hemoglobin 31.3 pg (27.0-31.2); Mean Corpuscular Volume 92.4 fl (81-99); Mean Platelet Volume 9.2 fl (7.4-10.4); Monocytes # 0.3 K/mm3 (0.1-1.0); Monocytes % 4.2 % (1.7-9.3); Neutrophils # 2.6 K/mm3 (1.8-7.8); Neutrophils % 37.1 % (37.0-80.0); Platelet Count 182 K/mm3 (142-424); Red Blood Count 4.55 M/mm3 (4.20-5.40); Red Cell Distribution Width 13.5 % (11.5-17.5); White Blood Count 7.1 K/mm3 (4.8-10.8)
[2023-03-29 09:41] LABS: MANUAL DIFFERENTIAL MANUAL DIFFERENTIAL (MANUAL DIFF)
[2023-03-29] MEDS: NITROGLYCERIN 800MCG/8ML SYR (CATH LAB) 800 MCG IA (10:09)
[2023-03-29] MEDS: diphenhydrAMINE 50MG/ML VIAL 50 MG IV (10:09)
[2023-03-29] MEDS: VERAPAMIL 2.5MG/ML 2ML VIAL 2.5 MG IV (10:09)
[2023-03-29] MEDS: 0.9 % SODIUM CHLORIDE 500 ML 25 ML IV (10:10)
[2023-03-29] MEDS: HEPARIN 1,000 UNITS/500ML NS (CATH LAB) 3000 UNIT IV (10:10)
[2023-03-29] MEDS: HEPARIN 1,000 UNITS/ML 10ML VIAL (CATH LAB) 10000 UNIT IV (10:10)
[2023-03-29] MEDS: LIDOCAINE 1% 10ML MDV 20 ML IJ (10:10)
[2023-03-29] MEDS: MIDAZOLAM HCL 1MG/1ML 5ML VIAL 1 MG IV (10:22)
[2023-03-29] MEDS: FENTANYL 100MCG/2ML VIAL 50 MCG IV (10:23)
[2023-03-29 10:25] LABS: Chloride 104 mmol/L (98-107); Sodium 139 mmol/L (136-145)
[2023-03-29 10:28] LABS: Blood Urea Nitrogen 15 mg/dl (7-17); Carbon Dioxide 28 mmol/L (22.0-30.0); Creatinine Clearance Estimated 74 mL/min (50-200); Estimated Glomerular Filt Rate 76 ml/min (>60); GFR (African American) 92 ML/MIN (>60); Glucose 101 mg/dl (74-100)
[2023-03-29] MEDS: IOPAMIDOL-370 (76%);100ML BOTTLE 40 ML IV (11:32)
[2023-03-29 13:38] LABS: Eosinophils % 1 % (0-3); Lymphocytes % 66 % (10-50); Monocytes % 3 % (2-9); Neutrophils % 30 % (42-76); Total Cells Counted 100
[2023-03-29 13:39] LABS: Platelet Estimate Normal; RBC Morphology Normal
== END 2023-03-29 13:40 | disposition home or self-care (01) ==
PROVIDERS: PCP Family Medicine; Visit Provider Internal Medicine
DX: R07.9 Chest pain, unspecified (principal); Z79.899 Other long term (current) drug therapy; I20.89 Other forms of angina pectoris; I10 Essential (primary) hypertension; E78.5 Hyperlipidemia, unspecified; Z87.891 Personal history of nicotine dependence
CPT/HCPCS: 80048; 85007; 85025; 93458; 99152; C1725; C1769; J1644; Q9967